=== PATIENT | female | born 1965 | race African-American/Black ===

== ENCOUNTER 2018-07-25 21:35 | Emergency (ER) | payer OTHER ==
[~2018-07-25] VITALS: Ht 170.2 cm; Wt 91.0 kg
[~2018-07-25 21:35] MED LIST: ACET-3161; FISH OIL; FLEXERIL; IBUPROFEN; KDUR; LISINOPRIL; MELOXICAM; NORCO; VITAMIN D3; [UNRECOGNIZED DRUG - OTHER]
[2018-07-25 22:00] VITALS: BP 132/80
== END 2018-07-25 23:30 | disposition left against medical advice (07) ==
LOC: ER 21:35
DX: Z53.21 Procedure and treatment not carried out due to patient leaving prior to being seen by health care provider (principal)